=== PATIENT | male | born 2000 | race Caucasian/White ===

== ENCOUNTER 2021-11-01 11:09 | Emergency (ER) | payer OTHER ==
[~2021-11-01] VITALS: Ht 182.9 cm; Wt 68.0 kg
[2021-11-01] MEDS ORDERED: HYDROcodone/APAP 5/325 MG 1 TAB TAB PO ONE (11:20)
[2021-11-01] MEDS ORDERED: LIDOCAINE MPF 1% 10 MG/ML VIAL INJ ONE (11:20)
--- NOTE | 2021-11-01 11:40 | NUR ---
PT WOUND TO L THUMB IRRIGATED.
[2021-11-01] MEDS ORDERED: BACI1PAC6 TP (13:21)
[2021-11-01] MEDS ORDERED: CEPH500C16 PO (13:21)
[2021-11-01] MEDS ORDERED: ACET-8386 PO (13:21)
[2021-11-01] MEDS ORDERED: IBUP-2213 PO (13:21)
--- NOTE | 2021-11-01 13:45 | NUR ---
21 YO M BIBS W C/O LOSS OF FINGERNAIL TO L THUMB S/P SMASHING HIS FINGER ON A CAR LIFT. BLEEDING CONTROLLED. PAIN 12/23. NO OTHER INJURIES PMH: DENIES NKA
--- NOTE | 2021-11-01 14:41 | NUR ---
PT L THUMB WOUND DRESSED WITH NON ADHERENT AND FROG SPLINT APPLIED. + CMS AFTER APPLICATION.
[2021-11-01 15:55] VITALS: BP 120/76
--- NOTE | 2021-11-01 15:55 | NUR ---
Patient discharged with v/s stable. Written and verbal after care instructions given and explained. Patient alert, oriented and verbalized understanding of instructions. Ambulatory with steady gait. All questions addressed prior to discharge. ID band removed. Patient advised to follow up with PMD. Rx of NORCO,BACITRACIN,KEFLEX given. Patient educated on indication of medication including possible reaction and side effects. Opportunity to ask questions provided and answered.
== END 2021-11-01 15:55 | disposition home or self-care (01) ==
LOC: MED 11:09
DX: S61.012A Laceration without foreign body of left thumb without damage to nail, initial encounter (principal); Z79.899 Other long term (current) drug therapy; W23.0XXA Caught, crushed, jammed, or pinched between moving objects, initial encounter; Y93.89 Activity, other specified; Y92.89 Other specified places as the place of occurrence of the external cause; Y99.8 Other external cause status
CPT/HCPCS: 12001; 73140; 99283; J2001

== ENCOUNTER 2021-11-04 09:55 | Emergency (ER) | payer OTHER ==
[~2021-11-04] VITALS: Ht 182.9 cm; Wt 67.6 kg
[~2021-11-04 09:55] MED LIST: ACET-8386 PO; BACI1PAC6 TP; CEPH500C16 PO; IBUP-2213 PO
[2021-11-04 10:13] VITALS: BP 134/74
--- NOTE | 2021-11-04 10:20 | NUR ---
21 Y/O MALE BIB SELF PRESENTS TO THE ED FOR RECHECK OF THE LEFT THUMB, PER PT HE HAD AN OPEN FRACTURE ON THE LEFT THUMB AFTER GETTING CRUSHED DURING WORK, SPLINTING DONE ON 11/01/21 IN THE ED [facility] PM: DENIES
--- NOTE | 2021-11-04 12:09 | NUR ---
NATALIE MOBLEY AT CHAIR SIDE
--- NOTE | 2021-11-04 12:58 | NUR ---
Patient discharged with v/s stable. Written and verbal after care instructions ABOUT WOUND CARE given and explained. Patient verbalized understanding. Ambulatory with steady gait. All questions addressed prior to discharge. Advised to follow up with PMD.
== END 2021-11-04 12:58 | disposition home or self-care (01) ==
LOC: MED 09:55
DX: S62.522D Displaced fracture of distal phalanx of left thumb, subsequent encounter for fracture with routine healing (principal); Z48.00 Encounter for change or removal of nonsurgical wound dressing; X58.XXXD Exposure to other specified factors, subsequent encounter
CPT/HCPCS: 99282